=== PATIENT | male | born 1980 | race Two or more races ===

== ENCOUNTER 2017-12-13 11:08 | Emergency (ER) | payer OTHER ==
[~2017-12-13] VITALS: Ht 177.8 cm; Wt 79.4 kg
[2017-12-13 11:08] VITALS: BP 125/69
[2017-12-13] MEDS ORDERED: KETOROLAC TROMETH 60MG/2ML VIAL IM ONE (11:30)
== END 2017-12-13 12:44 | disposition home or self-care (01) ==
LOC: EDBD 11:08 → ER 11:08
DX: R51 Headache (principal); M79.641 Pain in right hand; V43.52XA Car driver injured in collision with other type car in traffic accident, initial encounter; Y93.89 Activity, other specified; Y99.8 Other external cause status; Y92.410 Unspecified street and highway as the place of occurrence of the external cause
CPT/HCPCS: 70450; 71250; 72125; 73120; 96372; 99284; J1885